=== PATIENT | male | born 1960 | race Caucasian/White ===

== ENCOUNTER 2017-11-14 00:08 | Emergency (ER) | payer MEDICAID ==
[~2017-11-14 00:08] MED LIST: ATOR10TA9 PO; CLON0.1T PO; OXYC-302
== END 2017-11-14 00:25 | disposition left against medical advice (07) ==
LOC: ED 00:19
DX: Z53.21 Procedure and treatment not carried out due to patient leaving prior to being seen by health care provider (principal)

== ENCOUNTER 2018-05-08 13:46 | Emergency (ER) | payer MEDICAID ==
[~2018-05-08] VITALS: Ht 180.3 cm; Wt 82.0 kg
[2018-05-08] MEDS ORDERED: LIDOCAINE 1%, 10ML INFIL ONE (14:00)
[2018-05-08] MEDS ORDERED: LIDOCAINE-MPF 1%, 2ML ONE ×2 (14:04→14:07)
[2018-05-08] MEDS ORDERED: CEFAZOLIN 1,000 MG ONE (14:54)
[2018-05-08] MEDS ORDERED: CEFAZOLIN 1,000 MG IM ONE (15:00)
[2018-05-08 15:07] VITALS: BP 137/96
== END 2018-05-08 16:01 | disposition left against medical advice (07) ==
LOC: ED 15:55
DX: S41.112A Laceration without foreign body of left upper arm, initial encounter (principal); F17.200 Nicotine dependence, unspecified, uncomplicated; Y04.0XXA Assault by unarmed brawl or fight, initial encounter; Y93.89 Activity, other specified; Y99.8 Other external cause status; Y92.89 Other specified places as the place of occurrence of the external cause
CPT/HCPCS: 12032; 96372; 99284; J0690

== ENCOUNTER 2018-10-22 02:43 | Emergency (ER) | payer MEDICAID ==
[~2018-10-22] VITALS: Ht 175.3 cm; Wt 82.0 kg
[~2018-10-22 02:43] MED LIST changes: -CLON0.1T PO; +CLON0.1T22 PO
[2018-10-22] MEDS ORDERED: KETOROLAC 30 MG/1 ML IM ONE (03:00)
[2018-10-22] MEDS ORDERED: HYDROcodone/APAP 5/325 TABLET PO ONE (03:00)
[2018-10-22] MEDS ORDERED: HYDROcodone/APAP 5/325 TABLET ONE (03:01)
[2018-10-22] MEDS ORDERED: KETOROLAC 30 MG/1 ML ONE (03:01)
--- NOTE | 2018-10-22 03:07 | NUR ---
PT. MEDICATED PER DEC FOR 610 RIGHT RIB PAIN AND TAKEN TO X-RAY VIA YULIYA.
[2018-10-22 04:00] LABS: BASOPHILS % (AUTO) 1 % (0-1); EOSINOPHILS # (AUTO) 0.08 x10^3/uL (0-0.4); EOSINOPHILS % (AUTO) 1 % (1-7); LYMPHOCYTES # (AUTO) 1.57 x10^3/uL (1-3.4); LYMPHOCYTES % (AUTO) 17 % (22-44); MD NO; MEAN CORPUSCULAR HEMOGLOBIN 32.1 pg (27.5-34.5); MEAN CORPUSCULAR HGB CONC 33.4 g/dL (33.2-36.2); MEAN CORPUSCULAR VOLUME 95.9 fL (81-97); MEAN PLATELET VOLUME 8.4 fL (7.4-10.4); MONOCYTES # (AUTO) 0.31 x10^3/uL (0.2-0.8); MONOCYTES % (AUTO) 3 % (2-9); NEUTROPHILS # (AUTO) 7.32 x10^3/uL (1.8-6.8); NEUTROPHILS % (AUTO) 78 % (42-75); PLATELET COUNT 386 x10^3/uL (130-400); RED BLOOD COUNT 5.07 x10^6/uL (4.38-5.82); RED CELL DISTRIBUTION WIDTH 13.4 % (9.4-14.8)
[2018-10-22] MEDS ORDERED: SODIUM CHLORIDE FLUSH 10ML SYR IVF ONE (04:00)
[2018-10-22 04:17] LABS: ALANINE AMINOTRANSFERASE 32 U/L (12-78); ALBUMIN 3.6 g/dL (3.4-5.0); ANION GAP 14 mmol/L (5-15); CALCIUM 8.5 mg/dL (8.5-10.1); CHLORIDE 102 mmol/L (98-107); CREATININE 1.06 mg/dL (0.7-1.3)
[2018-10-22 04:20] LABS: ALKALINE PHOSPHATASE 105 U/L (45-117); BILIRUBIN,TOTAL 0.7 mg/dL (0.2-1.0); TOTAL PROTEIN 7.4 g/dL (6.4-8.2)
[2018-10-22] MEDS ORDERED: DEXTROSE 50%, 50ML SYRINGE ONE (04:24)
--- NOTE | 2018-10-22 04:25 | NUR ---
CRITICAL VALUE REPORTED TO DR. IBRAHIM; NEW ORDER FOR 1/2 AMP OF D50.
[2018-10-22] MEDS ORDERED: DEXTROSE 50%, 50ML SYRINGE IVPush ONE (04:30)
--- NOTE | 2018-10-22 04:32 | NUR ---
Note enedina in EDM - 10/22/18 at 0540 by RAMESH LATE ENTRY(PREVIOUSLY ENTERED ON WRONG PT.): PT SLEEPING, EQUAL CHEST RISE WITH NADN. GOOD CAP REFILL. SITTER REMAINS OUTSIDE ROOM FOR CONTINOUS MONITORING.
--- NOTE | 2018-10-22 04:32 | NUR ---
LATE ENTRY(PREVIOUS NOTE ENTERED WRONG AND ON WRONG PT.): PT. MEDICATED PER DEC AND TO CT VIA RNEY AT THIS TIME. PT. DOES REPORT "MY PAIN IS MUCH BETTER, IT HARDLY HURTS WHEN I COUGH NOW".
--- NOTE | 2018-10-22 04:42 | NUR ---
PT. BACK FROM CT.
--- NOTE | 2018-10-22 04:49 | NUR ---
DR. IBRAHIM IN TO DISCUSS POC WITH PT. PT. DENIES NEEDS AT THIS TIME. VS UPDATED. CONTINUOUS PULSE OX AND B/P MONITORS REMAIN IN PLACE. CALL LIGHT IN REACH. ALL SAFETY MEASURES OBSERVED.
[2018-10-22] MEDS ORDERED: OMNIPAQUE 350 MG/ML, 100ML BOTTLE ONE (04:57)
--- NOTE | 2018-10-22 05:12 | NUR ---
FSBS 87 AND REPORTED BACK TO DR. IBRAHIM. PT. EDUCATED ON USE OF INCENTIVE SPIROMETER AND WAS ABLE TO REACH 1999 ON FIRST TRY WITH NO PROBLEM. PT. DEMONSTRATES EFFECTIVE USE OF IS X 5 WITH THIS RN WATCHING. PT. EDUCATED ON REASONS TO RETURN TO ED IMMEDIATLY; PT. VERBALIZED UNDERSTANDING.
[2018-10-22 05:18] VITALS: BP 140/83
== END 2018-10-22 05:37 | disposition home or self-care (01) ==
LOC: ED 03:32
DX: S22.41XA Multiple fractures of ribs, right side, initial encounter for closed fracture (principal); S27.321A Contusion of lung, unilateral, initial encounter; W19.XXXA Unspecified fall, initial encounter; Y93.89 Activity, other specified; Y92.89 Other specified places as the place of occurrence of the external cause; Y99.8 Other external cause status
CPT/HCPCS: 36415; 71101; 71260; 80053; 82962; 85025; 96372; 96374; 99284; J1885; Q9967

== ENCOUNTER 2018-10-25 11:02 | Inpatient (IN) | payer MEDICAID ==
[~2018-10-25] VITALS: Ht 180.3 cm; Wt 78.7 kg
[2018-10-25] MEDS ORDERED: OXYcodone/APAP 5/325MG TABLET ONE (11:54)
[2018-10-25] MEDS ORDERED: IBUPROFEN 600 MG TABLET ONE (11:54)
[2018-10-25] MEDS ORDERED: OXYcodone/APAP 5/325MG TABLET PO ONE (12:00)
[2018-10-25] MEDS ORDERED: IBUPROFEN 600 MG TABLET PO ONE (12:00)
[2018-10-25] MEDS ORDERED: CEFTRIAXONE 1,000 MG ONE (12:17)
[2018-10-25] MEDS ORDERED: LIDOCAINE-MPF 1%, 5ML ONE (12:17)
[2018-10-25] MEDS ORDERED: CEFTRIAXONE 1,000 MG IM ONE (12:30)
[2018-10-25 13:23] LABS: MEAN CORPUSCULAR HEMOGLOBIN 32.1 pg (27.5-34.5); MEAN CORPUSCULAR HGB CONC 33.9 g/dL (33.2-36.2); MEAN CORPUSCULAR VOLUME 94.8 fL (81-97); MEAN PLATELET VOLUME 8.8 fL (7.4-10.4); PLATELET COUNT 374 x10^3/uL (130-400); RED BLOOD COUNT 5.16 x10^6/uL (4.38-5.82); RED CELL DISTRIBUTION WIDTH 13.5 % (9.4-14.8)
[2018-10-25 13:33] LABS: ALANINE AMINOTRANSFERASE 31 U/L (12-78); ALBUMIN 3.7 g/dL (3.4-5.0); ANION GAP 11 mmol/L (5-15); CHLORIDE 101 mmol/L (98-107); CREATININE 0.84 mg/dL (0.7-1.3)
[2018-10-25 13:35] LABS: ALKALINE PHOSPHATASE 106 U/L (45-117); BILIRUBIN,TOTAL 0.7 mg/dL (0.2-1.0); TOTAL PROTEIN 7.9 g/dL (6.4-8.2)
[2018-10-25 13:37] LABS: BASOPHILS % (AUTO) 1 % (0-1); EOSINOPHILS # (AUTO) 0.03 x10^3/uL (0-0.4); EOSINOPHILS % (AUTO) 0 % (1-7); LYMPHOCYTES # (AUTO) 1.65 x10^3/uL (1-3.4); LYMPHOCYTES % (AUTO) 14 % (22-44); MD SCAN; MONOCYTES # (AUTO) 0.31 x10^3/uL (0.2-0.8); MONOCYTES % (AUTO) 3 % (2-9); NEUTROPHILS # (AUTO) 9.42 x10^3/uL (1.8-6.8); NEUTROPHILS % (AUTO) 82 % (42-75)
[2018-10-25] MEDS ORDERED: SODIUM CHLORIDE FLUSH 10ML SYR IVF ONE (14:00)
[2018-10-25] MEDS ORDERED: SODIUM CHLORIDE 0.9% 1,000ML IVBOLUS ONE (14:00)
[2018-10-25] MEDS ORDERED: AZITHROMYCIN 500 MG in SODIUM CHLORIDE 0.9% 250 ML IV ONE (14:30)
[2018-10-25 14:42] LABS: RAPID INFLUENZA A Negative (Negative); RAPID INFLUENZA B Negative (Negative)
--- NOTE | 2018-10-25 14:55 | NUR ---
PT REPORT FROM RAHAT ZHAO. PT TO BE ADMITTED. HOSPITALIST AT BS.
[2018-10-25] MEDS ORDERED: ONDANSETRON 2MG/ML, 2ML IVPush PRN (15:00)
[2018-10-25] MEDS ORDERED: ONDANSETRON ODT 4 MG PO PRN (15:00)
[2018-10-25] MEDS ORDERED: POLYETHYLENE GLYCOL 17 GM PACKET PO PRN (15:00)
[2018-10-25] MEDS ORDERED: LABETALOL 5MG/ML, 20ML IVPush PRN (15:00)
[2018-10-25 15:13] LABS: FREE T4 (FREE THYROXINE) 1.01 ng/dL (0.76-1.46)
[2018-10-25] MEDS ORDERED: LIDODERM 5% PATCH TD SCH (15:30)
[2018-10-25] MEDS ORDERED: NORCO (15:36)
--- NOTE | 2018-10-25 15:37 | NUR ---
IV 20G RAC. AZITHROMYCIN INFUSING AT 250ML/HR VIA PUMP (225ML INFUSED). IV SITE PATENT
[2018-10-25] MEDS: SODIUM CHLORIDE 0.9% 1,000 ML IV SCH ×2 (16:06→23:13)
--- NOTE | 2018-10-25 16:06 | NUR ---
NS 1L HUNG; INFUSING AT 125ML/HR VIA PUMP PER EMAR. IV SITE PATENT. PT DOZING ON BED, SIDE RAILS UP X2, CALL LIGHT W/IN REACH.
[2018-10-25] MEDS ORDERED: ENOXAPARIN 40 MG/0.4 ML ONE (16:23)
[2018-10-25] MEDS ORDERED: LIDODERM 5% PATCH TD ONE (16:23)
[2018-10-25] MEDS: AMPICILLIN/SULBACTAM 3 GM in SODIUM CHLORIDE 0.9% 100 ML IV SCH ×2 (16:58→23:10)
[2018-10-25] MEDS: ENOXAPARIN 40 MG/0.4 ML SQ SCH (17:03)
--- NOTE | 2018-10-25 17:04 | NUR ---
LIDODERM PATCH APPLIED. UNASYN NIXON, INFUSING AT 200ML/HR VIA PUMP. LOVENOX INJ GIVEN.
--- NOTE | 2018-10-25 17:11 | NUR ---
REMY RN - REPORT TO REJI GIANG.
--- NOTE | 2018-10-25 17:11 | NUR ---
CALLED RAHAT MENDOZA FOR ROOM 488-1. REJI REPORTED THAT SHE ALREADY RECEIVED REPORT "FROM SOME MALE". NO PT REPORT GIVEN FROM THIS RN.
[2018-10-25 17:36] VITALS: BP 129/71
[2018-10-25] MEDS: GUAIFENESIN 200 MG TABLET PO SCH ×2 (18:21→23:10)
[2018-10-25] MEDS: IBUPROFEN 200 MG TABLET PO PRN (18:23)
[2018-10-25] MEDS ORDERED: ALBUTEROL/IPRATROPIUM 2.5MG/0.5MG, 3 ML NPPB PRN (18:30)
[2018-10-25 18:58] VITALS: BP 123/68
[2018-10-25] MEDS: DOXYCYCLINE 100MG TABLET PO SCH (20:54)
[2018-10-25] MEDS: OXYcodone IR 5MG TABLET PO PRN (21:40)
[2018-10-26 01:46] VITALS: BP 130/81
[2018-10-26] MEDS: OXYcodone IR 5MG TABLET PO PRN (04:30)
[2018-10-26] MEDS: GUAIFENESIN 200 MG TABLET PO SCH ×4 (05:12→19:30)
[2018-10-26] MEDS: AMPICILLIN/SULBACTAM 3 GM in SODIUM CHLORIDE 0.9% 100 ML IV SCH ×4 (05:12→22:44)
[2018-10-26 05:50] LABS: BASOPHILS # (AUTO) 0.02 x10^3/uL (0-0.1); BASOPHILS % (AUTO) 0 % (0-1); EOSINOPHILS # (AUTO) 0.23 x10^3/uL (0-0.4); EOSINOPHILS % (AUTO) 3 % (1-7); LYMPHOCYTES # (AUTO) 1.92 x10^3/uL (1-3.4); LYMPHOCYTES % (AUTO) 26 % (22-44); MD NO; MEAN CORPUSCULAR HGB CONC 33.6 g/dL (33.2-36.2); MEAN PLATELET VOLUME 9.1 fL (7.4-10.4); MONOCYTES # (AUTO) 0.51 x10^3/uL (0.2-0.8); MONOCYTES % (AUTO) 7 % (2-9); NEUTROPHILS # (AUTO) 4.62 x10^3/uL (1.8-6.8); NEUTROPHILS % (AUTO) 63 % (42-75); PLATELET COUNT 321 x10^3/uL (130-400); RED BLOOD COUNT 4.68 x10^6/uL (4.38-5.82); RED CELL DISTRIBUTION WIDTH 13.5 % (9.4-14.8)
[2018-10-26 06:00] LABS: ALANINE AMINOTRANSFERASE 25 U/L (12-78); ALBUMIN 3.2 g/dL (3.4-5.0); ANION GAP 8 mmol/L (5-15); CALCIUM 8.5 mg/dL (8.5-10.1); CHLORIDE 104 mmol/L (98-107); CREATININE 0.75 mg/dL (0.7-1.3)
[2018-10-26 06:10] LABS: ALKALINE PHOSPHATASE 93 U/L (45-117); BILIRUBIN,TOTAL 1.3 mg/dL (0.2-1.0); TOTAL PROTEIN 6.9 g/dL (6.4-8.2)
[2018-10-26 06:57] VITALS: BP 148/81
[2018-10-26] MEDS ORDERED: MAGNESIUM SULFATE PMX 2GM/50ML 50 ML IV ONE (08:30)
[2018-10-26] MEDS: DOXYCYCLINE 100MG TABLET PO SCH ×2 (08:38→19:29)
[2018-10-26] MEDS: SODIUM CHLORIDE 0.9% 1,000 ML IV SCH ×2 (08:38→20:34)
[2018-10-26] MEDS: SENNA/DOCUSATE TABLET PO SCH (08:39)
[2018-10-26] MEDS: IBUPROFEN 200 MG TABLET PO PRN (08:45)
[2018-10-26] MEDS ORDERED: IBUPROFEN 200 MG TABLET PO PRN (09:49)
[2018-10-26] MEDS: KETOROLAC 30 MG/1 ML IVPush PRN ×2 (11:00→19:29)
[2018-10-26 12:27] VITALS: BP 150/87
[2018-10-26] MEDS ORDERED: LIDODERM 5% PATCH TD SCH (15:30)
[2018-10-26] MEDS: ENOXAPARIN 40 MG/0.4 ML SQ SCH (15:57)
[2018-10-26 20:15] VITALS: BP 149/80
[2018-10-27] MEDS: OXYcodone IR 5MG TABLET PO PRN ×2 (00:08→08:32)
[2018-10-27 00:10] VITALS: BP 155/89
[2018-10-27] MEDS: GUAIFENESIN 200 MG TABLET PO SCH ×2 (05:23→10:21)
[2018-10-27] MEDS: AMPICILLIN/SULBACTAM 3 GM in SODIUM CHLORIDE 0.9% 100 ML IV SCH ×2 (05:23→10:21)
[2018-10-27] MEDS: SODIUM CHLORIDE 0.9% 1,000 ML IV SCH (05:23)
[2018-10-27] MEDS: KETOROLAC 30 MG/1 ML IVPush PRN (05:23)
[2018-10-27 06:08] LABS: BASOPHILS # (AUTO) 0.03 x10^3/uL (0-0.1); BASOPHILS % (AUTO) 1 % (0-1); EOSINOPHILS # (AUTO) 0.48 x10^3/uL (0-0.4); EOSINOPHILS % (AUTO) 8 % (1-7); LYMPHOCYTES # (AUTO) 1.55 x10^3/uL (1-3.4); LYMPHOCYTES % (AUTO) 25 % (22-44); MD NO; MEAN CORPUSCULAR HEMOGLOBIN 31.3 pg (27.5-34.5); MEAN CORPUSCULAR HGB CONC 32.7 g/dL (33.2-36.2); MEAN CORPUSCULAR VOLUME 95.7 fL (81-97); MONOCYTES # (AUTO) 0.49 x10^3/uL (0.2-0.8); MONOCYTES % (AUTO) 8 % (2-9); NEUTROPHILS # (AUTO) 3.64 x10^3/uL (1.8-6.8); NEUTROPHILS % (AUTO) 59 % (42-75); PLATELET COUNT 277 x10^3/uL (130-400); RED BLOOD COUNT 4.11 x10^6/uL (4.38-5.82); RED CELL DISTRIBUTION WIDTH 12.8 % (9.4-14.8)
[2018-10-27 07:01] LABS: ANION GAP 8 mmol/L (5-15); CALCIUM 8.8 mg/dL (8.5-10.1); CHLORIDE 105 mmol/L (98-107)
[2018-10-27 07:03] VITALS: BP 163/94
[2018-10-27 07:03] LABS: ALANINE AMINOTRANSFERASE 22 U/L (12-78); ALKALINE PHOSPHATASE 75 U/L (45-117); BILIRUBIN,TOTAL 0.9 mg/dL (0.2-1.0)
[2018-10-27] MEDS: SENNA/DOCUSATE TABLET PO SCH (08:32)
[2018-10-27] MEDS: DOXYCYCLINE 100MG TABLET PO SCH (08:32)
[2018-10-27] MEDS ORDERED: AMLODIPINE 5 MG TABLET PO SCH (10:00)
== END 2018-10-27 10:44 | disposition left against medical advice (07) | DRG 871 ==
LOC: ED 11:30 → EDIP 14:26 → 4EST 17:23
PROVIDERS: ADMIT Hospitalist; ATTEND Hospitalist
DX: A41.9 Sepsis, unspecified organism (principal); J15.9 Unspecified bacterial pneumonia; S22.41XA Multiple fractures of ribs, right side, initial encounter for closed fracture; J44.0 Chronic obstructive pulmonary disease with (acute) lower respiratory infection; R91.1 Solitary pulmonary nodule; F17.210 Nicotine dependence, cigarettes, uncomplicated; Z60.2 Problems related to living alone; W06.XXXA Fall from bed, initial encounter; Z53.21 Procedure and treatment not carried out due to patient leaving prior to being seen by health care provider; Z59.0 Homelessness; Z83.3 Family history of diabetes mellitus; Y93.89 Activity, other specified; Y92.89 Other specified places as the place of occurrence of the external cause; Y99.8 Other external cause status
CPT/HCPCS: 36415; 71046; 80053; 83605; 83735; 84100; 84145; 84439; 84443; 85025; 87040; 87070; 87077; 87184; 87205; 87400; 93306; 96360; 96372; 99285; G0378; J0295; J0456; J0696; J1650; J1885; J3475; J7030; J7050

== ENCOUNTER 2019-10-09 00:11 | Emergency (ER) | payer MEDICAID ==
[~2019-10-09] VITALS: Ht 177.8 cm; Wt 95.0 kg
[~2019-10-09 00:11] MED LIST changes: +NORCO
[2019-10-09 00:14] VITALS: BP 145/93
--- NOTE | 2019-10-09 01:05 | NUR ---
PT OFFERED USE OF RESTROOM AND FOOD/FLUIDS, BECOMES ANGRY AND ASK "ARE YOU KIDDING ME". KEEPING PT UNTIL SAFE FOR DISCHARGE.
--- NOTE | 2019-10-09 01:52 | NUR ---
PT UP AND WALKS OUT BACK DOOR, GATE UNSTEADY, FOLLOWED OUT AND PLACED IN WHEELCHAIR AND ASSISTED BACK INSIDE, PT IS AA AND O TIMES 4, STATES THAT HE WANTS TO GO TO [facility], AWARE THAT WE WILL PROVIDE A CAB VOUCHER FOR SAFE DISCHARGE
== END 2019-10-09 02:33 | disposition home or self-care (01) ==
LOC: ED 00:33
DX: F10.229 Alcohol dependence with intoxication, unspecified (principal); F17.200 Nicotine dependence, unspecified, uncomplicated; Z72.9 Problem related to lifestyle, unspecified; Z59.0 Homelessness; Y90.9 Presence of alcohol in blood, level not specified
CPT/HCPCS: 99283

== ENCOUNTER 2019-11-17 18:47 | Emergency (ER) | payer MEDICAID ==
[~2019-11-17] VITALS: Ht 180.3 cm; Wt 81.4 kg
[2019-11-17 19:14] VITALS: BP 115/84
--- NOTE | 2019-11-17 20:39 | NUR ---
NAX1 TO BE ROOMED
--- NOTE | 2019-11-17 20:45 | NUR ---
NA X2 TO BE ROOMED
--- NOTE | 2019-11-17 20:54 | NUR ---
NAX3 TO BE ROOMED
== END 2019-11-17 20:57 | disposition left against medical advice (07) ==
LOC: ED 20:50
DX: M79.662 Pain in left lower leg (principal); M79.89 Other specified soft tissue disorders
CPT/HCPCS: 99281

== ENCOUNTER 2019-12-04 16:39 | Emergency (ER) | payer MEDICAID ==
[~2019-12-04] VITALS: Ht 180.3 cm; Wt 80.0 kg
--- NOTE | 2019-12-04 16:44 | NUR ---
PT BROUGHT IN BY LENNIE FROM [facility] WITH CHIEF COMPLAINT OF RIGHT HIP PAIN FOR 4-5 YEARS AND ETOH.
--- NOTE | 2019-12-04 16:50 | NUR ---
HAS APPOINTMENT [facility] 01[facility]/20 BUT PAIN WORSE
[2019-12-04] MEDS ORDERED: IBUPROFEN 200 MG TABLET ONE (17:05)
--- NOTE | 2019-12-04 17:22 | NUR ---
PT TO IMAGING
[2019-12-04] MEDS ORDERED: IBUPROFEN 200 MG TABLET PO ONE (17:30)
--- NOTE | 2019-12-04 18:36 | NUR ---
STEADY AMBULATION TO BATHROOM
--- NOTE | 2019-12-04 18:50 | NUR ---
REPORT RECEIVED FROM RAHAT BABIN. PT RESTING ON GURNEY WITH EYES CLOSED, RESPIRATIONS EVEN AND NON LABORED, BED LOWERED X2 RAILS RAISED.
[2019-12-04 19:26] VITALS: BP 122/83
--- NOTE | 2019-12-04 19:28 | NUR ---
THIS RN TO D/C PT. PT BECAME BELLIGERENT UPON RECEIVING D/C EDUCATION. PT THREW PAPERWORK AND SWUNG ARMS AT THIS RN. SECURITY CALLED FOR SAFE D/C. PT COMPLYING WITH SECURITY AT THIS TIME.
== END 2019-12-04 20:05 | disposition home or self-care (01) ==
LOC: ED 19:32
DX: M16.12 Unilateral primary osteoarthritis, left hip (principal); F10.220 Alcohol dependence with intoxication, uncomplicated; Y90.0 Blood alcohol level of less than 20 mg/100 ml
CPT/HCPCS: 99283

== ENCOUNTER 2020-03-21 09:14 | Emergency (ER) | payer MEDICAID ==
[~2020-03-21] VITALS: Ht 180.3 cm; Wt 82.0 kg
[2020-03-21 09:21] VITALS: BP 114/72
[2020-03-21] MEDS ORDERED: MUPIROCIN OINT 2%, 22GM TP ONE (11:00)
--- NOTE | 2020-03-21 11:21 | NUR ---
BACTOBAN AND DRESSING IN PLACE. PT TOLERATED WELL. PT VERBALIZES UNDERSTANDING OF S/S OF INFECTION AND DRESSING CHANGES.
== END 2020-03-21 11:42 | disposition home or self-care (01) ==
LOC: ED 11:18
DX: L01.01 Non-bullous impetigo (principal); I10 Essential (primary) hypertension
CPT/HCPCS: 99283

== ENCOUNTER 2020-07-31 11:10 | Emergency (ER) | payer MEDICAID ==
[~2020-07-31] VITALS: Ht 180.3 cm; Wt 85.0 kg
--- NOTE | 2020-07-31 11:19 | NUR ---
patient arrives with complaints of bleeding rectally two days. he has poop and blood all over laisha area. it appears to be small anal fissures and some dried blood.
[2020-07-31 11:42] LABS: BASOPHILS % (AUTO) 1 % (0-1); EOSINOPHILS % (AUTO) 1 % (1-7); LYMPHOCYTES % (AUTO) 21 % (22-44); MEAN CORPUSCULAR HGB CONC 33.7 g/dL (33.2-36.2); MEAN PLATELET VOLUME 8.4 fL (7.4-10.4); MONOCYTES % (AUTO) 5 % (2-9); NEUTROPHILS % (AUTO) 72 % (42-75); PLATELET COUNT 192 x10^3/uL (130-400); RED BLOOD COUNT 4.36 x10^6/uL (4.38-5.82); RED CELL DISTRIBUTION WIDTH 14.1 % (9.4-14.8)
[2020-07-31 11:58] LABS: MD NO
[2020-07-31 12:08] VITALS: BP 123/78
--- NOTE | 2020-07-31 12:09 | NUR ---
patient has weather specific clothes. made him a peanut butter and jelly, and discharge reviewed.
== END 2020-07-31 12:14 | disposition home or self-care (01) ==
LOC: ED 12:12
DX: K62.5 Hemorrhage of anus and rectum (principal); I10 Essential (primary) hypertension; F17.200 Nicotine dependence, unspecified, uncomplicated
CPT/HCPCS: 36415; 85025; 99283

== ENCOUNTER 2020-12-05 19:55 | Emergency (ER) | payer MEDICAID ==
[~2020-12-05] VITALS: Ht 167.6 cm; Wt 70.5 kg
[~2020-12-05 19:55] MED LIST changes: -OXYC-302; +OXYC1TAB14
[2020-12-05 20:04] VITALS: BP 109/62
--- NOTE | 2020-12-05 20:59 | NUR ---
pt refusing to go to imaging, states "you guys know i have problems with my hips" this rn informed pt that if he wants us to help with his hip pain he needs to do imgaing. pt again refuses, this rn asks he if wants to leave, stating that if he doesnt want to participate in his care, he is free to leave [facility]. pt states he doesnt want to leave, this rn then states that if he wants to stay he should get the imaging done so provider knows what he needs to feel better. pt agrees, taken out to imaging with tech as transporter no signs or symptoms of acute distress noted respirations even and unlabored
--- NOTE | 2020-12-05 21:24 | NUR ---
pt back from imaging, tech states pt again refused to cooperate with cares. provider aware. pt in bed with no signs or symptoms of acute distress noted respirations even and unlabored, bed rails up bilaterally and pt refusing to wear monitor.
--- NOTE | 2020-12-05 22:19 | NUR ---
pt up to ambulate to bathroom, walked with staggering gait and poor balance rn with touch assist. md in hallway to assess, states pt is too unsteady to go home. pt assisted back to bed, combative with rn, able to getsafely in bed with no signs or symptoms ofa cute distress noted respirations even and unlabored. pt refusing to cooperate with vital signs, refusing to wear monitors.
--- NOTE | 2020-12-05 23:11 | NUR ---
pt continues to rest quietly in bed with eyes closed and even unlabored respirations no signs or symptoms of acute distress noted, pt still refusing to wear vital signs monitor. bed rails up bilaterally.
--- NOTE | 2020-12-05 23:55 | NUR ---
pt awake and alert, ambulating with steady gait and good balance, md aware, pt ready to dc. pt continues to refuse assessments and instructions, given verbal dc instructions and all belongings, ready to dc.
== END 2020-12-05 23:58 | disposition home or self-care (01) ==
LOC: ED 23:52
DX: G89.11 Acute pain due to trauma (principal); M54.5 Low back pain; F10.120 Alcohol abuse with intoxication, uncomplicated; I10 Essential (primary) hypertension; W01.0XXA Fall on same level from slipping, tripping and stumbling without subsequent striking against object, initial encounter; Y93.89 Activity, other specified; Y92.410 Unspecified street and highway as the place of occurrence of the external cause; Y99.8 Other external cause status; Y90.0 Blood alcohol level of less than 20 mg/100 ml
CPT/HCPCS: 99283

== ENCOUNTER 2021-05-29 11:13 | Emergency (ER) | payer MEDICAID, OTHER ==
[~2021-05-29] VITALS: Ht 180.3 cm; Wt 68.8 kg
[2021-05-29] MEDS ORDERED: DIPHENHYDRAMINE 50 MG CAPSULE PO ONE (12:00)
[2021-05-29] MEDS ORDERED: DIPHENHYDRAMINE 50 MG CAPSULE ONE (12:36)
[2021-05-29 13:23] VITALS: BP 124/74
== END 2021-05-29 13:25 | disposition home or self-care (01) ==
LOC: ED 13:23
DX: B86 Scabies (principal); I10 Essential (primary) hypertension; F17.210 Nicotine dependence, cigarettes, uncomplicated
CPT/HCPCS: 99406